=== PATIENT | male | born 1965 | race Two or more races ===

== ENCOUNTER 2023-11-16 17:02 | Emergency (ER) | payer MEDICAID ==
[~2023-11-16] VITALS: Ht 162.6 cm; Wt 79.5 kg
[2023-11-16 19:56] VITALS: BP 134/72; PULSE 97; RESP 18; TEMP 97.6; O2SAT 96
[2023-11-16 21:02] LABS: Urine Bacteria NONE SEEN /hpf (None Seen); Urine Blood Negative /uL (Negative); Urine Clarity Clear (Clear); Urine Color Yellow (Yellow); Urine Mucus FEW (None Seen); Urine Protein, UAD Negative (Negative); Urine Specific Gravity 1.018 (1.001-1.035); Urine Urobilinogen Normal (Negative); Urine WBC 4 /hpf (0 - 3)
[2023-11-19 08:06] LABS: Chlamydia Trachomatis, NAA Negative (Negative); Neisseria gonorrhoeae, NAA Negative (Negative)
== END 2023-11-16 22:21 | disposition home or self-care (01) ==
LOC: ER 17:02
DX: R30.0 Dysuria (principal); Z88.8 Allergy status to other drugs, medicaments and biological substances
CPT/HCPCS: 74176; 81001

== ENCOUNTER 2024-06-01 15:14 | Inpatient (IN) | payer MEDICAID ==
[~2024-06-01] VITALS: Ht 162.6 cm; Wt 99.4 kg
[2024-06-01 16:01] LABS: Basophils # (auto) 0 10 ^3/uL (0-0.2); Basophils % (auto) 0.4 % (0.0-2.0); Eosinophils # (auto) 0.2 10 ^3/uL (0-0.8); Eosinophils % (auto) 3.6 % (0.0-7.0); Hematocrit 37.4 % (41.0-53.0); Hemoglobin 12.5 g/dL (13.5-17.5); Lymphocytes # (auto) 1.2 10 ^3/uL (0.4-5.4); Lymphocytes % (auto) 25.9 % (10.0-50.0); Mean Corpuscular Hemoglobin 28.4 pg (28.0-32.0); Mean Corpuscular Hgb Conc. 33.4 g/dL (32.0-36.0); Monocytes # (auto) 0.4 10 ^3/uL (0-1.3); Monocytes % (auto) 8.5 % (0.0-12.0); Neutrophils # (auto) 2.9 10 ^3/uL (1.6-8.6); Neutrophils % (auto) 61.6 % (37.0-80.0); Nucleated Red Blood Cells % 0.1 %; Red Cell Distribution Width 14.9 % (11.8-14.3); White Blood Cell 4.7 10^3/uL (4.4-10.8)
[2024-06-01 16:18] LABS: Alanine Aminotransferase 27 U/L (7-40); Albumin 4.6 g/dL (3.2-4.8); Alkaline Phosphatase 139 U/L (46-116); Anion Gap 8 (5-15); Aspartate Aminotransferase 21 U/L (13-40); BUN/Creatinine Ratio 22.2 (10.0-20.0); Blood Urea Nitrogen 28 mg/dL (9-23); Calcium 9.6 mg/dL (8.7-10.4); Carbon Dioxide 22 mmol/L (20-30); Chloride 111 mmol/L (98-107); Glucose 88 mg/dL (74-106); Potassium 4.7 mmol/L (3.5-5.1); Sodium 141 mmol/L (136-145)
[2024-06-01 16:19] LABS: Bilirubin, Total 0.5 mg/dL (0.2-1.0); Total Protein 7.5 g/dL (5.7-8.2)
[2024-06-01] MEDS: HYDROmorphone HCL 2 MG/ML VL/or syr IM ONE (16:39)
[2024-06-01] MEDS: cloNIDine HCL 0.1 MG TAB PO ONE (16:39)
[2024-06-01 20:50] LABS: Urine Bacteria None Seen /hpf (None Seen)
[2024-06-01 21:04] LABS: Urine Blood Negative /uL (Negative); Urine Clarity Clear (Clear); Urine Color Light-Yellow (Yellow); Urine Protein, UAD Negative (Negative); Urine Specific Gravity 1.018 (1.001-1.035); Urine Urobilinogen Normal (Negative); Urine WBC 3 /hpf (0 - 3); Urine pH 5.5 (5.0-9.0)
[2024-06-01] MEDS ORDERED: hydrALAZINE HCL 20 MG/ML VL IV PRN (21:15)
[2024-06-01] MEDS ORDERED: ACETAMINOPHEN 325 MG TAB PO PRN (21:15)
[2024-06-01] MEDS ORDERED: ONDANSETRON HCL 4 MG/2 ML VIAL IV PRN (21:15)
[2024-06-01] MEDS ORDERED: DOCUSATE SOD 100 MG CAP PO PRN (21:15)
[2024-06-01] MEDS: METOPROLOL TARTRATE 50 MG TAB PO SCH (22:26)
[2024-06-01] MEDS: ATORVASTATIN 20 MG TAB PO SCH (22:26)
[2024-06-01] MEDS: SODIUM CHLOR 0.9% PF (SALINE LOCK) 10ML VIAL/SYR IV SCH (22:29)
[2024-06-01] MEDS: HYDROmorphone HCL 2 MG/ML VL/or syr IV ONE (23:32)
[2024-06-01] MEDS ORDERED: MORPHINE SULFATE INJ 2 MG/ml SYRG IV PRN (23:45)
[2024-06-01] MEDS ORDERED: NITROGLYCERIN 0.4 MG SL TAB SL PRN (23:45)
[2024-06-02] VITALS (8 sets, daily range): BP systolic 137–178; BP diastolic 57–76; PULSE 64–86; RESP 16–20; TEMP 97.4–98.2; O2SAT 95–99
[2024-06-02] MEDS ORDERED: LEVO125T7 PO (02:09)
[2024-06-02] MEDS ORDERED: GAB100C PO (02:09)
[2024-06-02] MEDS ORDERED: MET50T PO (02:09)
[2024-06-02] MEDS ORDERED: ATOR20TA50 PO (02:09)
[2024-06-02] MEDS ORDERED: GABA-1250 PO (02:09)
[2024-06-02] MEDS ORDERED: TAMS0.4C36 PO (02:09)
[2024-06-02] MEDS ORDERED: NAP500T PO (02:09)
[2024-06-02] MEDS: LEVOTHYROXINE SODIUM 50 MCG TAB PO SCH (05:58)
[2024-06-02 06:41] LABS: Basophils # (auto) 0 10 ^3/uL (0-0.2); Basophils % (auto) 0.4 % (0.0-2.0); Eosinophils # (auto) 0.2 10 ^3/uL (0-0.8); Eosinophils % (auto) 3.6 % (0.0-7.0); Hematocrit 34.6 % (41.0-53.0); Hemoglobin 11.4 g/dL (13.5-17.5); Lymphocytes # (auto) 1.5 10 ^3/uL (0.4-5.4); Lymphocytes % (auto) 30.8 % (10.0-50.0); Mean Corpuscular Hemoglobin 28.5 pg (28.0-32.0); Mean Corpuscular Volume 86.3 fL (80.0-100.0); Monocytes # (auto) 0.5 10 ^3/uL (0-1.3); Neutrophils # (auto) 2.7 10 ^3/uL (1.6-8.6); Neutrophils % (auto) 54.2 % (37.0-80.0); Nucleated Red Blood Cells % 0.1 %; Red Blood Cells 4.01 10^6/uL (4.5-5.90); Red Cell Distribution Width 14.8 % (11.8-14.3); White Blood Cell 4.9 10^3/uL (4.4-10.8)
[2024-06-02 06:45] LABS: Alanine Aminotransferase 20 U/L (7-40); Alkaline Phosphatase 123 U/L (46-116); Anion Gap 8 (5-15); BUN/Creatinine Ratio 17.1 (10.0-20.0); Blood Urea Nitrogen 22 mg/dL (9-23); Calcium 9.4 mg/dL (8.5-10.1); Carbon Dioxide 21 mmol/L (20-30); Chloride 111 mmol/L (98-107); Glucose 99 mg/dL (74-106); Potassium 4.2 mmol/L (3.5-5.1); Sodium 140 mmol/L (136-145)
[2024-06-02 06:46] LABS: Albumin 4.2 g/dL (3.2-4.8); Aspartate Aminotransferase 20 U/L (13-40)
[2024-06-02 06:47] LABS: Bilirubin, Total 0.4 mg/dL (0.2-1.0); Total Protein 6.8 g/dL (5.7-8.2)
[2024-06-02] MEDS: ASPirin 81 mg TAB PO SCH (11:01)
[2024-06-02] MEDS: HYDROmorphone HCL 2 MG/ML VL/or syr IV PRN (11:18)
[2024-06-02] MEDS: CLINDAMYCIN 600MG IV 50 ML IV SCH (21:12)
[2024-06-03 01:00] VITALS: BP 136/40; PULSE 68; RESP 18; TEMP 98; O2SAT 97
[2024-06-03 05:00] VITALS: BP 133/71; PULSE 63; RESP 18; TEMP 98; O2SAT 96
[2024-06-03 09:00] VITALS: BP 102/61; PULSE 60; RESP 18; TEMP 98; O2SAT 97
[2024-06-03 13:00] VITALS: BP 142/72; PULSE 64; RESP 20; TEMP 97.7; O2SAT 98
[2024-06-03 17:00] VITALS: BP 133/71; PULSE 90; RESP 18; TEMP 98.1; O2SAT 96
[2024-06-03] MEDS: TAMSULOSIN HYDROCHLORIDE 0.4 MG CAP PO SCH (18:05)
[2024-06-03] MEDS: Juven Orange Powder PACKET 27.5gm PO SCH (18:05)
[2024-06-03 20:00] VITALS: RESP 16
[2024-06-04 05:00] VITALS: BP 120/88; PULSE 99; RESP 18; TEMP 98.4; O2SAT 96
[2024-06-04 08:52] VITALS: BP 105/72; PULSE 100; PULSE 65; RESP 17; RESP 20; TEMP 98.1; O2SAT 98
[2024-06-04] MEDS ORDERED: CLIN1CAP70 PO (11:14)
[2024-06-04 13:00] VITALS: BP 139/75; PULSE 65; RESP 17; TEMP 98.1; O2SAT 97
== END 2024-06-04 16:20 | disposition home or self-care (01) | DRG 383 ==
LOC: ER 15:14 → WEST WING 23:40 → OVERFLOW 23:41 → WEST WING 06-02 01:01
PROVIDERS: ADMIT Internal Medicine; ATTEND Internal Medicine
DX: L03.115 Cellulitis of right lower limb (principal); D50.9 Iron deficiency anemia, unspecified; E86.0 Dehydration; E03.9 Hypothyroidism, unspecified; I16.0 Hypertensive urgency; M21.961 Unspecified acquired deformity of right lower leg; E78.5 Hyperlipidemia, unspecified; G62.9 Polyneuropathy, unspecified; N40.0 Benign prostatic hyperplasia without lower urinary tract symptoms; M19.071 Primary osteoarthritis, right ankle and foot; I12.9 Hypertensive chronic kidney disease with stage 1 through stage 4 chronic kidney disease, or unspecified chronic kidney disease; N18.9 Chronic kidney disease, unspecified; E66.9 Obesity, unspecified; Z88.3 Allergy status to other anti-infective agents; Z88.1 Allergy status to other antibiotic agents; Z68.37 Body mass index [BMI] 37.0-37.9, adult
CPT/HCPCS: 36415; 73600; 73620; 73700; 80053; 81001; 83605; 83690; 83880; 84443; 85025; 87077; 87186; 87205; 93925; 97163; G0378; J3490

== ENCOUNTER 2024-08-27 16:28 | Emergency (ER) | payer MEDICAID ==
[~2024-08-27] VITALS: Ht 162.6 cm; Wt 86.0 kg
[~2024-08-27 16:28] MED LIST: ATOR20TA50 PO; CLIN1CAP70 PO; GAB100C PO; GABA-1250 PO; LEVO125T7 PO; MET50T PO; NAP500T PO; TAMS0.4C39 PO
[2024-08-27 18:52] LABS: Basophils # (auto) 0 10 ^3/uL (0-0.2); Basophils % (auto) 0.2 % (0.0-2.0); Eosinophils # (auto) 0 10 ^3/uL (0-0.8); Eosinophils % (auto) 0.5 % (0.0-7.0); Hematocrit 40.2 % (41.0-53.0); Hemoglobin 13.6 g/dL (13.5-17.5); Lymphocytes # (auto) 0.5 10 ^3/uL (0.4-5.4); Lymphocytes % (auto) 12.6 % (10.0-50.0); Mean Corpuscular Hemoglobin 28.3 pg (28.0-32.0); Mean Corpuscular Hgb Conc. 33.7 g/dL (32.0-36.0); Mean Corpuscular Volume 83.9 fL (80.0-100.0); Monocytes # (auto) 0.4 10 ^3/uL (0-1.3); Monocytes % (auto) 9.3 % (0.0-12.0); Neutrophils # (auto) 3.2 10 ^3/uL (1.6-8.6); Neutrophils % (auto) 77.4 % (37.0-80.0); Nucleated Red Blood Cells % 0.3 %; Platelet Count (auto) 174 10^3/uL (140-450); White Blood Cell 4.2 10^3/uL (4.4-10.8)
[2024-08-27 19:08] LABS: Alanine Aminotransferase 21 U/L (7-40); Alkaline Phosphatase 128 U/L (46-116); Anion Gap 11 (5-15); Aspartate Aminotransferase 23 U/L (13-40); BUN/Creatinine Ratio 13.9 (10.0-20.0); Blood Urea Nitrogen 25 mg/dL (9-23); Calcium 9.9 mg/dL (8.7-10.4); Carbon Dioxide 22 mmol/L (20-31); Chloride 107 mmol/L (98-107); Glucose 112 mg/dL (74-106); Potassium 4.1 mmol/L (3.5-5.1); Sodium 140 mmol/L (136-145); Total Protein 8.5 g/dL (5.7-8.2)
[2024-08-27 20:42] LABS: Urine Bacteria MANY /hpf (None Seen); Urine Blood 1+ /uL (Negative); Urine Clarity Ex.Turbid (Clear); Urine Color Yellow (Yellow); Urine Mucus FEW (None Seen); Urine Protein, UAD 1+ (Negative); Urine Specific Gravity 1.023 (1.001-1.035); Urine Urobilinogen 2 mg/dL (Negative); Urine WBC 543 /hpf (0 - 3); Urine pH 5.5 (5.0-9.0)
[2024-08-27] MEDS ORDERED: NITR-87 PO (20:52)
[2024-08-27 21:15] VITALS: BP 159/61; PULSE 99; RESP 16; O2SAT 97
[2024-08-27] MEDS: ACETAMINOPHEN 500 MG TAB PO ONE (21:20)
[2024-08-29 23:06] LABS: Chlamydia Trachomatis, NAA Negative (Negative); Neisseria gonorrhoeae, NAA Negative (Negative)
== END 2024-08-27 21:28 | disposition home or self-care (01) ==
LOC: ER 16:28
DX: N39.0 Urinary tract infection, site not specified (principal); I10 Essential (primary) hypertension; Z88.1 Allergy status to other antibiotic agents; Z88.2 Allergy status to sulfonamides; Z88.8 Allergy status to other drugs, medicaments and biological substances; Z79.899 Other long term (current) drug therapy
CPT/HCPCS: 36415; 80053; 81001; 85025

== ENCOUNTER 2024-09-08 11:19 | Emergency (ER) | payer MEDICAID ==
[~2024-09-08] VITALS: Ht 162.6 cm; Wt 99.5 kg
[~2024-09-08 11:19] MED LIST changes: +NITR-87 PO
[2024-09-08 11:57] LABS: Basophils # (auto) 0 10 ^3/uL (0-0.2); Basophils % (auto) 0.5 % (0.0-2.0); Eosinophils # (auto) 0.1 10 ^3/uL (0-0.8); Eosinophils % (auto) 3.5 % (0.0-7.0); Hematocrit 38.3 % (41.0-53.0); Hemoglobin 12.6 g/dL (13.5-17.5); Lymphocytes # (auto) 1.1 10 ^3/uL (0.4-5.4); Lymphocytes % (auto) 29.6 % (10.0-50.0); Mean Corpuscular Hemoglobin 27.7 pg (28.0-32.0); Mean Corpuscular Hgb Conc. 32.9 g/dL (32.0-36.0); Mean Corpuscular Volume 84.4 fL (80.0-100.0); Monocytes # (auto) 0.3 10 ^3/uL (0-1.3); Monocytes % (auto) 7.6 % (0.0-12.0); Neutrophils # (auto) 2.2 10 ^3/uL (1.6-8.6); Neutrophils % (auto) 58.8 % (37.0-80.0); Nucleated Red Blood Cells % 0.1 %; Platelet Count (auto) 179 10^3/uL (140-450); Red Blood Cells 4.54 10^6/uL (4.5-5.90); Red Cell Distribution Width 15.8 % (11.8-14.3); White Blood Cell 3.7 10^3/uL (4.4-10.8)
[2024-09-08 12:05] LABS: Chloride 112 mmol/L (98-107); Potassium 4.2 mmol/L (3.5-5.1); Sodium 143 mmol/L (136-145)
[2024-09-08 12:06] LABS: Anion Gap 10 (5-15); Carbon Dioxide 21 mmol/L (20-31)
[2024-09-08 12:07] LABS: Calcium 9.2 mg/dL (8.7-10.4)
[2024-09-08 12:11] LABS: BUN/Creatinine Ratio 14.3 (10.0-20.0); Blood Urea Nitrogen 20 mg/dL (9-23); Glucose 100 mg/dL (74-106)
[2024-09-08 12:22] LABS: Urine Bacteria None Seen /hpf (None Seen)
[2024-09-08 12:39] LABS: Urine Blood 3+ /uL (Negative); Urine Clarity Turbid (Clear); Urine Color Colorless (Yellow); Urine Mucus FEW (None Seen); Urine Protein, UAD 1+ (Negative); Urine Specific Gravity 1.018 (1.001-1.035); Urine Urobilinogen Normal (Negative); Urine WBC 66 /hpf (0 - 3); Urine pH 5.5 (5.0-9.0)
[2024-09-08] MEDS: KETOROLAC TROMETH 30 MG/ML 1ML VIAL IV ONE (14:06)
[2024-09-08] MEDS: cefTRIAXone 1GM/50ML D5W 50 ML IV ONE (14:06)
[2024-09-08] MEDS: SODIUM CHLORIDE 0.9% 1,000 ML IV ONE (14:07)
[2024-09-08] MEDS ORDERED: CEFD300C2 PO (16:28)
[2024-09-08 16:38] VITALS: BP 131/80; PULSE 66; RESP 18; TEMP 98; O2SAT 99
== END 2024-09-08 16:47 | disposition home or self-care (01) ==
LOC: ER 11:19
DX: N39.0 Urinary tract infection, site not specified (principal); I10 Essential (primary) hypertension; Z79.899 Other long term (current) drug therapy; Z87.440 Personal history of urinary (tract) infections; Z98.890 Other specified postprocedural states; Z88.1 Allergy status to other antibiotic agents; Z88.2 Allergy status to sulfonamides; Z88.5 Allergy status to narcotic agent
CPT/HCPCS: 36415; 80048; 81001; 85025; 96365; 96375; 99284; J0696; J1885; J7030; 96361

== ENCOUNTER 2024-12-13 14:23 | Inpatient (IN) | payer MEDICARE, MEDICAID ==
[~2024-12-13] VITALS: Ht 162.6 cm; Wt 100.3 kg
[~2024-12-13 14:23] MED LIST changes: +CEFD300C2 PO
[2024-12-13 15:45] VITALS: PULSE 100; RESP 18; O2SAT 97
--- NOTE | 2024-12-13 16:12 | DVH ---
CT ABDOMEN AND PELVIS WITHOUT CONTRAST CLINICAL HISTORY: Diffuse bilateral upper abdominal pain TECHNIQUE: Multiple contiguous axial images of the abdomen and pelvis without intravenous contrast. The images were reformatted degenerate coronal and sagittal reconstructions. All CT scans at this medical facility are performed using dose modulation techniques as appropriate t o a performed exam including the following:Automated exposure control was utilized; adjustment of the MA and/or KV according to patient size; and use of iterative reconstruction technique. Radiation Dose Information: CT Dose: CTDI volume is 24 mGy. Dose-length product is 1201 mGy*cm Comparison: CT CT AB PEL WO CON-NO ORAL OR IV on DOS: 11/16/23 FINDINGS: Evaluation of the abdomen and pelvis is limited without intravenous contrast. The liver again appears small in size with nodular surface contour compatible with hepatic cirrhosis. There is no suspicious appearing hepatic steatosis. The gallbladder, pancreas, kidneys, adrenal g lands, and spleen appear within normal limits. There is no gross evidence of abdominal lymphadenopathy. There is no free fluid or free air. The stomach grossly appears unremarkable. The small and large bowel loops demonstrate normal caliber . There is a normal-appearing appendix seen in the right lower quadrant abdomen without inflammatory changes. The abdominal aorta and IVC appear within normal limits. A poorly filled bladder demonstrates circumferential wall thickening. Pelvic organ appears within nor mal limits. There is no gross evidence of a pelvic mass. There is no free fluid collection. Lung bases are clear. There is stable deformities of the T11 and T12 vertebral bodies with loss of intervertebral disc spac e.. There are multilevel degenerative changes in lumbar spine. IMPRESSION: 1. There is no acute process in the abdomen and pelvis. 2. The liver demonstrates cirrhotic morphology. 3. Stable deformities of the T11 and T12 vertebral bodies with loss of intervertebral disc space. HS:Y
[2024-12-13] MEDS: DICYCLOMINE HCL (10MG/ML) 2 ML AMPULE IM ONE (16:19)
[2024-12-13 16:45] LABS: Basophils # (auto) 0 10 ^3/uL (0-0.2); Basophils % (auto) 0.4 % (0.0-2.0); Eosinophils # (auto) 0 10 ^3/uL (0-0.8); Eosinophils % (auto) 1.4 % (0.0-7.0); Hematocrit 43.1 % (41.0-53.0); Hemoglobin 14.2 g/dL (13.5-17.5); Lymphocytes # (auto) 0.9 10 ^3/uL (0.4-5.4); Lymphocytes % (auto) 31.2 % (10.0-50.0); Mean Corpuscular Hemoglobin 28.4 pg (28.0-32.0); Mean Corpuscular Volume 86.1 fL (80.0-100.0); Monocytes # (auto) 0.5 10 ^3/uL (0-1.3); Monocytes % (auto) 17.1 % (0.0-12.0); Neutrophils # (auto) 1.4 10 ^3/uL (1.6-8.6); Neutrophils % (auto) 49.9 % (37.0-80.0); Nucleated Red Blood Cells % 0.3 %; Platelet Count (auto) 141 10^3/uL (140-450); Red Blood Cells 5.01 10^6/uL (4.5-5.90); Red Cell Distribution Width 16.3 % (11.8-14.3); White Blood Cell 2.8 10^3/uL (4.4-10.8)
[2024-12-13 16:51] LABS: Potassium 4.5 mmol/L (3.5-5.1); Sodium 141 mmol/L (136-145)
[2024-12-13 16:52] LABS: Anion Gap 11 (5-15); Carbon Dioxide 23 mmol/L (20-31)
[2024-12-13 16:53] LABS: Calcium 9.8 mg/dL (8.7-10.4)
[2024-12-13 16:57] LABS: Glucose 94 mg/dL (74-106)
[2024-12-13 17:05] LABS: Blood Urea Nitrogen 32 mg/dL (9-23); Chloride 107 mmol/L (98-107); Lipase 55 U/L (12-53)
[2024-12-13 18:18] LABS: Urine Bacteria MANY /hpf (None Seen); Urine Blood TRACE /uL (Negative); Urine Clarity Turbid (Clear); Urine Color Yellow (Yellow); Urine Mucus FEW (None Seen); Urine Protein, UAD TRACE (Negative); Urine Specific Gravity 1.024 (1.001-1.035); Urine Squamous Epithelial Cell FEW /hpf (<5); Urine Urobilinogen 2 mg/dL (Negative); Urine WBC 125 /hpf (0 - 3); Urine pH 5.5 (5.0-9.0)
--- NOTE | 2024-12-13 19:43 | ED.PDOC ---
General HPI Comments This patient is a morbidly obese 59-year-old male who arrives the ED today for evaluation more on in his urine as well as upper abdominal pain for the past two days. Patient has recently had multiple UTIs patient states he believes he is having an urinary tract infection again and is concerned about his abdominal pain. Patient denies any fever or vomiting but states intermittent nausea. Patient was mildly hypertensive and mildly tachycardic at arrival. Chief Complaint: Urinary Time Seen by MD: 15:37 Primary Care Provider: BRYANT Reviewed notes: Nurses Notes Allergies: Coded Allergies: Ciprofloxacin (Verified Allergy, Unknown, 11/16/23) PATIENT STATES MAKES HIM ITCHY Morphine (Verified Allergy, Unknown, 11/16/23) Sulfamethoxazole w/Trimethoprim (Verified Allergy, Unknown, 11/16/23) Home Meds Active Scripts Cefdinir (Cefdinir) 300 Mg Cap, 1 CAP PO BID for 7 Days, #14 CAP Prov:DONALDO CROWELL MD 09/08/24 Nitrofurantoin Monohydrate Mac (Macrobid) 100 Mg Cap, 100 MG PO BID for 7 Days, #14 CAP Prov:SIDRA VÁZQUEZ 08/27/24 Clindamycin Hcl (Clindamycin Hcl) 300 Mg Cap, 300 MG PO TID for 7 Days, #21 CAP Prov:MARY KAY BANKS MD 06/04/24 Reported Medications Gabapentin (Gabapentin) 100 Mg Cap, 1 CAP PO TID 06/02/24 Atorvastatin Calcium (ATORVASTATIN CALCIUM) 20 Mg Tab, 1 TAB PO DAILY 06/02/24 Naproxen (NAPROSYN TABLET) 500 Mg Tb, 1 TAB PO BID 06/02/24 Levothyroxine Sodium (Levothyroxine Sodium) 125 Mcg Tab, 1 TAB PO DAILY 06/02/24 Gabapentin (Gabapentin) 300 Mg Cap, 1 CAP PO TID 06/02/24 Tamsulosin Hcl (Tamsulosin Hcl) 0.4 Mg Cap, 1 CAP PO DAILY 06/02/24 Metoprolol Tartrate (LOPRESSOR TABLET) 50 Mg Tb, 1 TAB PO BID 06/02/24 Information Source: Patient Mode of Arrival: Ambulatory Severity: Moderate Timing: Days Duration: Since onset Prehospital treatment: None Onset: Spontaneous Symptoms: Dysuria History of: UTI Location: Suprapubic, Abdomen associated signs and symptoms: Abdominal Pain, Nausea Past Medical History PAST MEDICAL HISTORY: HTN Surgical History: Denies all surgeries Family History Family History: Reviewed,noncontributory to illness, No family hx of Cancer, No family hx of DM, No family hx of Heart amilcar, No family hx of HTN, No family hx ofKidney amilcar, No family hx of Liver amilcar, No family hx of Lung amilcar, No family hx of Stroke Social History Smoker: Non-Smoker Alcohol: Denies ETOH Use Drugs: Denies Drug Use Lives In: Home Constitutional: denies: chills, diaphoresis, fatigue, fever, malaise, sweats, weakness, others EENTM: denies: blurred vision, double vision, ear bleeding, ear discharge, ear drainage, ear pain, ear ringing, eye pain, eye redness, hearing loss, mouth pain, mouth swelling, nasal discharge, nose bleeding, nose congestion, nose pain, photophobia, tearing, throat pain, throat swelling, voice changes, others Respiratory: denies: cough, hemoptysis, orthopnea, SOB at rest, shortness of breath, SOB with excertion, stridor, wheezing, others Cardiovascular: denies: chest pain, dizzy spells, diaphoresis, Dyspnea on exertion, edema, irregular heart beat, left arm pain, lightheadedness, palpitations, PND, syncope, others Gastrointestinal: reports: abdominal pain; denies: abdomen distended, blood streaked bowels, constipated, diarrhea, dysphagia, difficulty swallowing, hematemesis, melena, nausea, poor appetite, poor fluid intake, rectal bleeding, rectal pain, vomiting, others Genitourinary: reports: dysuria, hematuria; denies: burning, flank pain, frequency, incontinence, penile discharge, penile sore, pain, testicle pain, testicle swelling, urgency, others Neurological: denies: dizziness, fainting, headache, left sided numbness, left sided weakness, numbness, paresthesia, pre-existing deficit, right sided numbness, right sided weakness, seizure, speech problems, tingling, tremors, weakness, others Musculoskeletal: reports: back pain; denies: gout, joint pain, joint swelling, muscle pain, muscle stiffness, neck pain, others Integumetry: denies: bruises, change in color, change in hair/nails, dryness, laceration, lesions, lumps, rash, wounds, others Allergic/Immunocompromised: denies: Difficulty Healing, Frequent Infections, Hives, Itching, others Hematologic/Lymphatic: denies: anemia, blood clots, easy bleeding, easy bruising, swollen glands, others Endocrine: denies: excessive hunger, excessive sweating, excessive thirst, excessive urination, flushing, intolerance to cold, intolerance to heat, unexplained weight gain, unexplained weight loss, others Psychiatric: denies: anxiety, bipolar disorder, depression, hopeless, panic disorder, schizophrenia, sleepless, suicidal, others Physical Exam General Appearance: Moderate Distress ([id number] distress due to abdominal pain and urinary concerns.), Obese HEENT: Normal ENT Inspection, Pharynx Normal, TMs Normal Neck: Full Range of Motion, Non-Tender, Normal, Normal Inspection Respiratory: Chest Non-Tender, Lungs Clear, No Accessory Muscle Use, No Respiratory Distress, Normal Breath Sounds Cardiovascular: No Edema, No JVD, No Murmur, No Gallop, Normal Peripheral Pulses, Regular Rate/Rhythm Breast Exam: Deferred Gastrointestinal: Other (Diffuse epigastric tenderness to palpation bilaterally on a relatively firm stomach. No pulsatile masses, but difficult to assess due to the body habitus of the individual.) Genitalia: Deferred Pelvic: Deferred Rectal: Deferred Extremities: No calf tenderness, Normal capillary refill, Normal inspection, Normal range of motion, Non-tender, No pedal edema Neurologic: Alert, No Motor Deficits, Normal Affect, Normal Mood, No Sensory Deficits Cerebellar Function: Normal Reflexes: Normal Skin: Dry, Normal Color, Warm Lymphatic: No Adenopathy Was a procedure done? Was a procedure done?: No Differential Diagnosis Kidney stone (Female): N/A Urinary Problem (Male): Other (UTI, pyelonephritis, urosepsis, sepsis, electrolyte abnormality, pancreatitis, gastroenteritis, liver disease) X-Ray, Labs, Meds, VS Vital Signs Date Time Temp Pulse Resp B/P (MAP) Pulse Ox O2 Delivery O2 Flow Rate FiO2 12/13/24 17:56 97.8 103 18 159/82 (107) 98 97.8 12/13/24 16:24 98.8 82 16 135/68 (90) 100 98.8 12/13/24 16:24 82 16 100 Room Air 12/13/24 15:45 100 18 97 Room Air* 0 21 12/13/24 15:40 98.5 100 18 151/85 (107) 97 98.5 12/13/24 14:52 98.0 104 20 144/81 (102) 96 Lab Test 12/13/24 17:49 12/13/24 16:14 12/13/24 15:34 Range/Units Troponin I High Sensitivity 6 5 </=54 ng/L White Blood Count 2.8 L 4.4-10.8 10^3/uL Red Blood Count 5.01 4.5-5.90 10^6/uL Hemoglobin 14.2 13.5-17.5 g/dL Hematocrit 43.1 41.0-53.0 % Mean Corpuscular Volume 86.1 80.0-100.0 fL Mean Corpuscular Hemoglobin 28.4 28.0-32.0 pg Mean Corpuscular Hemoglobin Concent 33.0 32.0-36.0 g/dL Red Cell Distribution Width 16.3 H 11.8-14.3 % Platelet Count 141 140-450 10^3/uL Mean Platelet Volume 7.7 6.9-10.8 fL Neutrophils (%) (Auto) 49.9 37.0-80.0 % Lymphocytes (%) (Auto) 31.2 10.0-50.0 % Monocytes (%) (Auto) 17.1 H 0.0-12.0 % Eosinophils (%) (Auto) 1.4 0.0-7.0 % Basophils (%) (Auto) 0.4 0.0-2.0 % Neutrophils # (Auto) 1.4 L 1.6-8.6 10 ^3/uL Lymphocytes # (Auto) 0.9 0.4-5.4 10 ^3/uL Monocytes # (Auto) 0.5 0-1.3 10 ^3/uL Eosinophils # (Auto) 0 0-0.8 10 ^3/uL Basophils # (Auto) 0 0-0.2 10 ^3/uL Nucleated Red Blood Cells 0.3 % Sodium Level 141 136-145 mmol/L Potassium Level 4.5 3.5-5.1 mmol/L Chloride Level 107 98-107 mmol/L Carbon Dioxide Level 23 20-31 mmol/L Anion Gap 11 5-15 Blood Urea Nitrogen 32 H 9-23 mg/dL Creatinine 1.78 H 0.700-1.30 mg/dL Glomerular Filtration Rate Calc 43 >90 mL/min BUN/Creatinine Ratio 18.0 10.0-20.0 Serum Glucose 94 74-106 mg/dL Calcium Level 9.8 8.7-10.4 mg/dL B-Type Natriuretic Peptide 6.19 0-100 pg/mL Lipase 55 H 12-53 U/L Urine Color Yellow Yellow Urine Clarity Turbid H Clear Urine pH 5.5 5.0-9.0 Urine Specific [place] 1.024 1.001-1.035 Urine Protein Trace H Negative Urine Ketones Negative Negative Urine Blood Trace H Negative /uL Urine Nitrite Negative Negative Urine Bilirubin Negative Negative Urine Urobilinogen 2 H Negative mg/dL Urine Leukocyte Esterase 3+ Negative /uL Urine RBC 7 0 - 3 /hpf Urine WBC 125 0 - 3 /hpf Urine Squamous Epithelial Cells Few <5 /hpf Urine Bacteria Many H None Seen /hpf Urine Mucus Few None Seen Urine Glucose Normal Normal mg/dL Current Medications Medications (Trade) Dose Ordered Sig/Noe Route Start Time Stop Time Status Last Admin Dicyclomine HCl (Bentyl Injection) 20 mg ONCE ONCE IM 12/13/24 15:45 12/13/24 15:47 DC 12/13/24 16:19 X-Ray, Labs, Meds, VS Comment All studies performed in the ED were evaluated by me personally. Laboratories studies revealed a leukopenia, elevated lipase, what appears to be acute on chronic renal injury and a significant urinary tract infection. Imaging studies ruled out a definitive pancreatitis, but it appears the patient has liver cirrhosis. Due to the intractable nature of the patient's urinary tract infections as he has failed on oral outpatient medications multiple times, patient will be admitted for IV antibiotics as well as assistance related to his liver cirrhosis concerns. Time of 1ST Reevaluation: 19:41 Reevaluation 1ST: Improved Consultation: PCP, Other (Hepatology) Patient Education/Counseling: Diagnosis, Treatment Family Education/Counseling: Diagnosis, Treatment Departure 1 Departure Time of Disposition: 19:42 Impression: Primary Impression: Pyelonephritis Additional Impressions: Liver cirrhosis [id number] kidney injury Elevated lipase Leukopenia Disposition: ADMITTED INPATIENT Condition: Stable Discharged With: Self Critical Care Note Critical Care Time?: No Stability Stability form required: No Heart Score Heart Score: Heart Score Response (Comments) Value History Slightly Suspicious 0 EKG Repolarization Disturb 1 Age 45-64 1 Risk Factors 1 or 2 risk factors 1 Troponin Normal limit 0 Total 3 TRINA HAM PAC Dec 13, 2024 19:43
[2024-12-13] MEDS: cefTRIAXone 1GM/50ML D5W 50 ML IV ONE (21:14)
[2024-12-13 23:00] VITALS: BP 126/75; PULSE 70; RESP 18; TEMP 98.9; O2SAT 97
[2024-12-13] MEDS ORDERED: NITROGLYCERIN 0.4 MG SL TAB SL PRN (23:00)
[2024-12-13] MEDS: TAMSULOSIN HYDROCHLORIDE 0.4 MG CAP PO ONE (23:30)
--- NOTE | 2024-12-13 23:38 | DVHHPRES ---
History of Present Illness Resident Creating Document: GABBY EDWARDS RESDIENT History of Present Illness This is a 59-year-old male with past medical history of recurrent UTI (3 pCO2 of LUZ within last year), hypertension, hypothyroidism, hyperlipidemia, came to the hospital because of abdominal pain. Per patient, the patient had upper respiratory tract infection symptoms including nasal drip, sneezing, cough since 4 days and epigastric abdominal pain since 2 days which is reproducible with cough. Patient also complained of urgency and frequency. Patient denies fever, shortness of breaths, chest pain, nausea, vomiting, headache, and recent changes in bowel and bladder habits. PMHx: recurrent UTI (3 pCO2 of LUZ within last year), hypertension, hypothyroidism, hyperlipidemia PSHx: BPH, status post TURP Social history: Ex-smoker, ex amphetamine user, ex cocaine user, ex heroin user, lives with the family, use walker for mobility Home medication: Atorvastatin, gabapentin, levothyroxine, tamsulosin, metoprolol Allergic history: Ciprofloxacin, morphine, Bactrim Review of Systems Review of Systems General: patient denies fever, fatigue, weaknes, sweating, any recent changes in appetite and weight HEENT: No headaches, visiual changes, hearing loss, tinnitus, nasal congestion and discharge, and sore throat. Cardiovascular: Reports epigastric abdominal Respiratory: Reports cough Gastrointestinal: Denies nausea, vomiting, dysphagia, odynophagia, heartburn, abdominal pain, flatulence, bloating, diarrhea, constipation, change in stool, or blood in stool. Genitourinary: Reports urgency and frequency Endocrine: No heat or cold intolerance, polydipsia, polyuria, and polyphagia. Neurological: No dizziness, extremity weakness and numbness, tremors, gait disturbance, seizures, and memory impairment. Psychiatric: Denies depression, anxiety,or insomnia. Musculoskeletal: Denies neck pain, stiffness and swelling, back pain, muscle weakness, joint pain, stiffness, swelling, or limited range of motion. Skin: No rashes, itching, skin lesion, changes in hair, nail, skin texture and breast. Hematologic/Lymphatic: Denies easy bruising, bleeding tendencies, or lymph node enlargement. Allergies: Coded Allergies: Ciprofloxacin (Verified Allergy, Unknown, 11/16/23) PATIENT STATES MAKES HIM ITCHY Morphine (Verified Allergy, Unknown, 11/16/23) Sulfamethoxazole w/Trimethoprim (Verified Allergy, Unknown, 11/16/23) Medications Current Medications Medications Dose Ordered Sig/Noe Route Start Time Stop Time Status Last Admin Dose Admin Nitroglycerin 0.4 mg Q5MINP PRN SL 12/13/24 23:00 Acetaminophen/ Hydrocodone Bitart 1 tab Q4HPRN PRN PO 12/13/24 23:15 Enoxaparin Sodium 40 mg DAILY SC 12/14/24 10:00 UNV Levothyroxine Sodium 125 mcg QAM@0600 PO 12/14/24 06:00 UNV Sodium Chloride 1,000 ml @ 100 mls/hr Q10H IV 12/13/24 23:30 UNV Ceftriaxone Sodium 50 ml @ 100 mls/hr DAILY@09 IV 12/14/24 09:00 UNV Ipratropium [place] 0.5 mg Q6HR NEB 12/14/24 00:00 UNV Tamsulosin HCl 0.4 mg QPM PO 12/14/24 18:00 UNV Albuterol 2.5 mg Q6HR NEB 12/14/24 00:00 UNV Exam Vital Signs Vital Signs Date Time Temp Pulse Resp B/P (MAP) Pulse Ox O2 Delivery O2 Flow Rate FiO2 12/13/24 17:56 97.8 103 18 159/82 (107) 98 97.8 12/13/24 16:24 Room Air 12/13/24 15:45 0 21 Exam General Appearance: Alert, Oriented X3, Cooperative, No acute distress HEENT: Atraumatic, PERRLA, EOMI, Mucous membrane moist/pink Respiratory: Bilateral mild rhonchi Cardiovascular: Regular rate, Normal S1, Normal S2, No murmurs, no chest wall tenderness Abdominal: Normal bowel sounds, Soft, No tenderness, No hepatospenomegaly, No masses Extremities: No clubbing, No cyanosis, No edema, Normal pulses, No tende rness/swelling Skin: Bilateral lower limb erythematous patches at the level of downey to the ankle Neuro: Normal gait, Normal speech, Strength at 5/5 X4 ext, Normal tone, Sensation intact, Cranial nerves 3-12 NL, Reflexes 2+ Psych/Mental Status: Mental status NL, Mood NL Labs/Xrays Labs Test 12/13/24 17:49 12/13/24 16:14 1/17/25 15:34 Range/Units Troponin I High Sensitivity 6 </=54 ng/L White Blood Count 2.8 L 4.4-10.8 10^3/uL Red Blood Count 5.01 4.5-5.90 10^6/uL Hemoglobin 14.2 13.5-17.5 g/dL Hematocrit 43.1 41.0-53.0 % Mean Corpuscular Volume 86.1 80.0-100.0 fL Mean Corpuscular Hemoglobin 28.4 28.0-32.0 pg Mean Corpuscular Hemoglobin Concent 33.0 32.0-36.0 g/dL Red Cell Distribution Width 16.3 H 11.8-14.3 % Platelet Count 141 140-450 10^3/uL Mean Platelet Volume 7.7 6.9-10.8 fL Neutrophils (%) (Auto) 49.9 37.0-80.0 % Lymphocytes (%) (Auto) 31.2 10.0-50.0 % Monocytes (%) (Auto) 17.1 H 0.0-12.0 % Eosinophils (%) (Auto) 1.4 0.0-7.0 % Basophils (%) (Auto) 0.4 0.0-2.0 % Neutrophils # (Auto) 1.4 L 1.6-8.6 10 ^3/uL Lymphocytes # (Auto) 0.9 0.4-5.4 10 ^3/uL Monocytes # (Auto) 0.5 0-1.3 10 ^3/uL Eosinophils # (Auto) 0 0-0.8 10 ^3/uL Basophils # (Auto) 0 0-0.2 10 ^3/uL Nucleated Red Blood Cells 0.3 % Sodium Level 141 136-145 mmol/L Potassium Level 4.5 3.5-5.1 mmol/L Chloride Level 107 98-107 mmol/L Carbon Dioxide Level 23 20-31 mmol/L Anion Gap 11 5-15 Blood Urea Nitrogen 32 H 9-23 mg/dL Creatinine 1.78 H 0.700-1.30 mg/dL Glomerular Filtration Rate Calc 43 >90 mL/min BUN/Creatinine Ratio 18.0 10.0-20.0 Serum Glucose 94 74-106 mg/dL Calcium Level 9.8 8.7-10.4 mg/dL B-Type Natriuretic Peptide 6.19 0-100 pg/mL Lipase 55 H 12-53 U/L Urine Color Yellow Yellow Urine Clarity Turbid H Clear Urine pH 5.5 5.0-9.0 Urine Specific [place] 1.024 1.001-1.035 Urine Protein Trace H Negative Urine Ketones Negative Negative Urine Blood Trace H Negative /uL Urine Nitrite Negative Negative Urine Bilirubin Negative Negative Urine Urobilinogen 2 H Negative mg/dL Urine Leukocyte Esterase 3+ Negative /uL Urine RBC 7 0 - 3 /hpf Urine WBC 125 0 - 3 /hpf Urine Squamous Epithelial Cells Few <5 /hpf Urine Bacteria Many H None Seen /hpf Urine Mucus Few None Seen Urine Glucose Normal Normal mg/dL Assessment/Plan Assessment/Plan Sepsis, likely due to UTI/pneumonia Pneumonia, likely due to Gram-positive Gram-negative/viral Chest x-ray shows interstitial infiltration Check COVID-19, influenza type a and B, MRSA nares and blood culture Empiric antibiotic ceftriaxone Breathing treatment IV normal saline Liver cirrhosis, likely due to alcohol use disorder Patient has history of alcohol use disorder, in sober since 3 years Hypothyroidism Continue home dose of levothyroxine Recurrent UTI UA shows UTI picture Urine culture Ceftriaxone Right foot deformity, patient use walker for mobility Follow up on outpatient basis with Orthopedics Hyperlipidemia Continue atorvastatin LUZ, on CKD 2, likely VMN FENa is 0.2 IV fluid BPH, status post TURP Continue tamsulosin Grade 2 obesity Patient consulted for healthy food habits for more than 18 minutes Hypertension Amlodipine 5 mg DIET: Cardiac diet DVT PROPHYLAXIS: Lovenox CODE STATUS: Goal of care discussed for more than 21 minutes, full code DISPOSITION: Med/surge Patient's status discussed with the patient. Case discussed with Dr. Mclaughlin Plan discussed with: Patient, Other (RN) My Orders Orders - GABBY EDWARDS RESDIMARGOTH Procedure Category Date Status Time Admit ADMIT 12/13/24 Transmitted 22:56 Oxygen By Nasal RT 12/13/24 Transmitted Cannula 22:56 Notify Of Changes SUE 12/13/24 In Process From Base 22:56 Nitroglycerin PHA 12/13/24 In Process Sublingual (Ntrostat 23:00 Hydrocodone-Acet PHA 12/13/24 In Process 5/325mg Tab ([place] 23:15 Enoxaparin Sodium PHA 12/13/24 Logged (Lovenox) 23:30 Enoxaparin Sodium PHA 12/14/24 Logged (Lovenox) 10:00 Levothyroxine Tablet PHA 12/14/24 Logged (Synthroid Tablet) 06:00 Sodium Chloride 0.9% PHA 12/13/24 Logged 23:30 Ceftriaxone 1gm/50ml PHA 12/14/24 Logged D5w (Rocephin) 09:00 Ipratropium Med[place] PHA 12/14/24 Logged (Atrovent Medneb) 00:00 Tamsulosin PHA 12/13/24 Logged Hydrochloride (Flomax) 23:30 Tamsulosin PHA 12/14/24 Logged Hydrochloride (Flomax) 18:00 Albuterol Medneb PHA 12/14/24 Transmitted (Ventolin Medneb) 00:00 Amlodipine Tablet PHA 12/13/24 Transmitted (Norvasc Tablet) 23:30 Amlodipine Tablet PHA 12/14/24 Transmitted (Norvasc Tablet) 10:00 Blood Culture SHARAN 12/13/24 Transmitted 23:29 Lipase LAB 12/13/24 Transmitted 23:29 Rapid Influenza A&B LAB 12/13/24 Transmitted 23:29 Covid19 Antigen [place] LAB 12/13/24 Transmitted Mrsa Screen SHARAN 12/13/24 Transmitted 23:29 Drug Screen LAB 12/13/24 Transmitted 23:29 Chest Xray 1 View XY 12/13/24 Logged 23:29 Cardiac DIET 12/14/24 Transmitted Diet-2gna,Lofat,Lochol Breakfast Urine Sodium LAB 12/13/24 Transmitted 23:29 Urine Creatinine LAB 12/13/24 Transmitted 23:29 Date of Service: Dec 13, 2024 Billing Provider: MARYLOU MCLAUGHLIN MD Common Visit Codes: [id number] INP/OBS CARE (HIGH) GABBY EDWARDS RESDIENT Dec 13, 2024 23:38 MARYLOU MCLAUGHLIN MD Dec 14, 2024 10:07
--- NOTE | 2024-12-13 23:56 | DVH ---
CHEST RADIOGRAPH Indication: COugh Technique: Single frontal view of the chest was obtained COMPARISON: None FINDINGS: Lines and Tubes: None Lungs: Mild interstitial pulmonary edema. Left basilar atelectasis. Pleura: No effusion. No pneumothorax. Cardiomediastinal contours: Unremarkable Bones: Unremarkable IMPRESSION: 1. Mild interstitial pulmonary edema.
[2024-12-14] VITALS (16 sets, daily range): BP systolic 115–144; BP diastolic 58–81; PULSE 71–106; RESP 16–20; TEMP 98.2–98.7; O2SAT 91–100
[2024-12-14 00:11] LABS: Sodium Urine 38 mmol/L (40-220)
[2024-12-14 00:18] LABS: Opiate Scree,Urine Neg (NEGATIVE); Phencyclidine Screen, Urine Neg (NEGATIVE)
[2024-12-14 00:39] LABS: Amphetamine Screen, Urine Neg (NEGATIVE); Barbiturate Scree,Urine Neg (NEGATIVE); Benzodiazephine Screen, Urine Neg (NEGATIVE); Cannabinoid Screen, Urine Neg (NEGATIVE); Cocaine Screen, Urine Neg (NEGATIVE); Creatinine, Urine 237.54 mg/dL (30.0-125.0)
[2024-12-14] MEDS: ALBUTEROL SULF 2.5 MG/0.5ML(0.5%) NEB SOLN NEB SCH (00:40)
[2024-12-14] MEDS: IPRATROPIUM BROM 0.5 MG/2.5ML INH SOL NEB SCH (00:40)
[2024-12-14] MEDS: ENOXAPARIN SOD 40 MG/0.4 ML SYRINGE SC ONE (00:48)
[2024-12-14] MEDS: amLODIPine BESYLATE 5 MG TAB PO ONE (00:53)
[2024-12-14] MEDS: HYDROcodone-ACET 5/325MG TAB PO PRN (00:55)
[2024-12-14] MEDS: SODIUM CHLORIDE 0.9% 1,000 ML IV SCH (00:56)
[2024-12-14 04:04] LABS: Basophils # (auto) 0 10 ^3/uL (0-0.2); Basophils % (auto) 0.4 % (0.0-2.0); Eosinophils # (auto) 0 10 ^3/uL (0-0.8); Eosinophils % (auto) 0.8 % (0.0-7.0); Hematocrit 39.3 % (41.0-53.0); Lymphocytes # (auto) 0.7 10 ^3/uL (0.4-5.4); Lymphocytes % (auto) 25.3 % (10.0-50.0); Mean Corpuscular Hemoglobin 28.1 pg (28.0-32.0); Mean Corpuscular Volume 85.2 fL (80.0-100.0); Monocytes # (auto) 0.4 10 ^3/uL (0-1.3); Monocytes % (auto) 14.6 % (0.0-12.0); Neutrophils # (auto) 1.7 10 ^3/uL (1.6-8.6); Neutrophils % (auto) 58.9 % (37.0-80.0); Nucleated Red Blood Cells % 0.3 %; Platelet Count (auto) 131 10^3/uL (140-450); Red Blood Cells 4.61 10^6/uL (4.5-5.90); Red Cell Distribution Width 16.2 % (11.8-14.3); White Blood Cell 2.8 10^3/uL (4.4-10.8)
[2024-12-14 04:44] LABS: Alanine Aminotransferase 35 U/L (7-40); Albumin 4.5 g/dL (3.2-4.8); Alkaline Phosphatase 105 U/L (46-116); Anion Gap 10 (5-15); Aspartate Aminotransferase 37 U/L (13-40); BUN/Creatinine Ratio 19.4 (10.0-20.0); Calcium 9.3 mg/dL (8.7-10.4); Carbon Dioxide 22 mmol/L (20-31); Chloride 107 mmol/L (98-107); Glucose 94 mg/dL (74-106); Potassium 4.2 mmol/L (3.5-5.1); Sodium 139 mmol/L (136-145)
[2024-12-14 04:45] LABS: Bilirubin, Total 0.6 mg/dL (0.2-1.0); Total Protein 7.3 g/dL (5.7-8.2)
[2024-12-14 04:46] LABS: Blood Urea Nitrogen 33 mg/dL (9-23)
[2024-12-14] MEDS: ATORVASTATIN 20 MG TAB PO ONE (05:25)
[2024-12-14] MEDS: LEVOTHYROXINE SODIUM 50 MCG TAB PO SCH (06:59)
[2024-12-14] MEDS: cefTRIAXone 1GM/50ML D5W 50 ML IV SCH (08:56)
[2024-12-14] MEDS: ENOXAPARIN SOD 40 MG/0.4 ML SYRINGE SC SCH (08:57)
[2024-12-14] MEDS: amLODIPine BESYLATE 5 MG TAB PO SCH (08:57)
--- NOTE | 2024-12-14 13:37 | DVHPN2 ---
Reviewed: Care Plan, H&P, Labs, Medications, Previous Orders, Radiology Changes from previous H/P or p: No Changes Objective Vitals Vital Signs Date Time Temp Pulse Resp B/P (MAP) Pulse Ox O2 Delivery O2 Flow Rate FiO2 12/14/24 12:00 82 18 100 12/14/24 11:53 Room Air* 0 21 12/14/24 09:03 98.3 132/76 (94) 98.3 Intake/Output Intake and Output 12/14/24 06:59 Intake Total 200 ml Balance 200 ml Intake Oral 200 ml Medications Current Medications Medications Dose Ordered Sig/Noe Route Start Time Stop Time Status Last Admin Dose Admin Nitroglycerin 0.4 mg Q5MINP PRN SL 12/13/24 23:00 Acetaminophen/ Hydrocodone Bitart 1 tab Q4HPRN PRN PO 12/13/24 23:15 12/14/24 00:55 1 TAB Enoxaparin Sodium 40 mg DAILY SC 12/14/24 10:00 12/14/24 08:57 40 MG Levothyroxine Sodium 125 mcg QAM@0600 PO 12/14/24 06:00 12/14/24 06:59 125 MCG Sodium Chloride 1,000 ml @ 100 mls/hr Q10H IV 12/13/24 23:30 12/14/24 00:56 100 MLS/HR Ceftriaxone Sodium 50 ml @ 100 mls/hr DAILY@09 IV 12/14/24 09:00 12/14/24 08:56 100 MLS/HR Ipratropium [place] 0.5 mg Q6HR NEB 12/14/24 00:00 12/14/24 11:53 0.5 MG Tamsulosin HCl 0.4 mg QPM PO 12/14/24 18:00 Albuterol 2.5 mg Q6HR NEB 12/14/24 00:00 12/14/24 11:53 2.5 MG Amlodipine Besylate 5 mg DAILY PO 12/14/24 10:00 12/14/24 08:57 5 MG Atorvastatin Calcium 40 mg HS PO 12/14/24 22:00 Laboratory Results Laboratory Tests 12/14/24 03:35 Chemistry Test 12/13/24 16:14 12/14/24 03:35 Calcium Level 9.8 mg/dL (8.7-10.4) 9.3 mg/dL (8.7-10.4) Albumin 4.5 g/dL (3.2-4.8) Total Protein 7.3 g/dL (5.7-8.2) Lipid panel Test 12/13/24 16:14 Lipase 55 U/L (12-53) H Cardiac Markers Test 12/13/24 16:14 B-Type Natriuretic Peptide 6.19 pg/mL (0-100) LFT Test 12/14/24 03:35 Alanine Aminotransferase (ALT) 35 U/L (7-40) Alkaline Phosphatase 105 U/L (46-116) Aspartate Amino Transferase (AST) 37 U/L (13-40) Total Bilirubin 0.6 mg/dL (0.2-1.0) Urinalysis Test 12/13/24 15:34 Urine Color Yellow (Yellow) Urine Clarity Turbid (Clear) H Urine pH 5.5 (5.0-9.0) Urine Specific [place] 1.024 (1.001-1.035) Urine Protein Trace (Negative) H Urine Ketones Negative (Negative) Urine Blood Trace /uL (Negative) H Urine Nitrite Negative (Negative) Urine Bilirubin Negative (Negative) Urine Urobilinogen 2 mg/dL (Negative) H Urine Leukocyte Esterase 3+ /uL (Negative) Urine RBC 7 /hpf (0 - 3) Urine WBC 125 /hpf (0 - 3) Urine Squamous Epithelial Cells Few /hpf (<5) Urine Bacteria Many /hpf (None Seen) H Urine Mucus Few (None Seen) Urine Creatinine 237.54 mg/dL (30.0-125.0) H Urine Sodium 38 mmol/L (40-220) L Urine Glucose Normal mg/dL (Normal) Microbiology Microbiology Date/Time Source Procedure Growth Status 12/13/24 15:34 Voided Urine Urine Culture - Preliminary Resulted Labs and/or images reviewed: Labs reviewed by me, Image(s) reviewed by me Assessment/Plan Assessment/Plan Sepsis secondary to urinary tract infection Acute urinary tract infection: Blood cultures urine cultures Rocephin History of recurrent urinary tract infections BPH status post TURP Hypertension Hypothyroidism: Synthroid Hypercholesterolemia: Lipitor Sujey test pending Flu test pending Time spent 65 minutes Patient is full code Condition guarded Advanced care planning time 20 minutes Plan discussed with: Patient Date of Service: Dec 14, 2024 Billing Provider: HARSHAD VARELA MD Common Visit Codes: [id number] CARE 30-74 MIN HARSHAD VARELA MD Dec 14, 2024 13:37
[2024-12-14 14:07] LABS: Rapid Influenza B Negative (Negative)
[2024-12-14 14:10] LABS: Rapid Influenza A Positive (Negative)
[2024-12-14 14:11] LABS: COVID19 ANTIGEN SOFIA FIA NEGATIVE (NEGATIVE)
[2024-12-14] MEDS: TAMSULOSIN HYDROCHLORIDE 0.4 MG CAP PO SCH (17:58)
[2024-12-14] MEDS: ATORVASTATIN 20 MG TAB PO SCH (21:00)
[2024-12-15] VITALS (17 sets, daily range): BP systolic 125–147; BP diastolic 72–80; PULSE 74–90; RESP 15–20; TEMP 97.8–98.7; O2SAT 94–100
--- NOTE | 2024-12-15 08:48 | DVHPN2 ---
Reviewed: Care Plan, H&P, Labs, Medications, Previous Orders, Radiology Changes from previous H/P or p: No Changes Objective Vitals Vital Signs Date Time Temp Pulse Resp B/P (MAP) Pulse Ox O2 Delivery O2 Flow Rate FiO2 12/15/24 06:10 79 15 100 12/15/24 06:02 Room Air 12/15/24 06:02 0 21 12/15/24 05:00 97.8 143/80 (101) 97.8 Intake/Output Intake and Output 12/15/24 07:00 Intake Total 1130 ml Output Total 200 ml Balance 930 ml Intake Oral 1080 ml IV Total 50 ml Output Urine Total 200 ml Medications Current Medications Medications Dose Ordered Sig/Noe Route Start Time Stop Time Status Last Admin Dose Admin Nitroglycerin 0.4 mg Q5MINP PRN SL 12/13/24 23:00 Acetaminophen/ Hydrocodone Bitart 1 tab Q4HPRN PRN PO 12/13/24 23:15 12/14/24 00:55 1 TAB Enoxaparin Sodium 40 mg DAILY SC 12/14/24 10:00 12/14/24 08:57 40 MG Levothyroxine Sodium 125 mcg QAM@0600 PO 12/14/24 06:00 12/15/24 05:29 125 MCG Sodium Chloride 1,000 ml @ 100 mls/hr Q10H IV 12/13/24 23:30 12/14/24 13:40 100 MLS/HR Ceftriaxone Sodium 50 ml @ 100 mls/hr DAILY@09 IV 12/14/24 09:00 12/14/24 08:56 100 MLS/HR Ipratropium [place] 0.5 mg Q6HR NEB 12/14/24 00:00 12/15/24 06:02 0.5 MG Tamsulosin HCl 0.4 mg QPM PO 12/14/24 18:00 12/14/24 17:58 0.4 MG Albuterol 2.5 mg Q6HR NEB 12/14/24 00:00 12/15/24 06:02 2.5 MG Amlodipine Besylate 5 mg DAILY PO 12/14/24 10:00 12/14/24 08:57 5 MG Atorvastatin Calcium 40 mg HS PO 12/14/24 22:00 12/14/24 21:00 40 MG Laboratory Results Laboratory Tests 12/14/24 03:35 Urinalysis Test 12/13/24 15:34 Urine Color Yellow (Yellow) Urine Clarity Turbid (Clear) H Urine pH 5.5 (5.0-9.0) Urine Specific [place] 1.024 (1.001-1.035) Urine Protein Trace (Negative) H Urine Ketones Negative (Negative) Urine Blood Trace /uL (Negative) H Urine Nitrite Negative (Negative) Urine Bilirubin Negative (Negative) Urine Urobilinogen 2 mg/dL (Negative) H Urine Leukocyte Esterase 3+ /uL (Negative) Urine RBC 7 /hpf (0 - 3) Urine WBC 125 /hpf (0 - 3) Urine Squamous Epithelial Cells Few /hpf (<5) Urine Bacteria Many /hpf (None Seen) H Urine Mucus Few (None Seen) Urine Creatinine 237.54 mg/dL (30.0-125.0) H Urine Sodium 38 mmol/L (40-220) L Urine Glucose Normal mg/dL (Normal) Microbiology Microbiology Date/Time Source Procedure Growth Status 12/13/24 23:57 Blood Blood Culture - Preliminary NO GROWTH AFTER 24 HOURS OF INCUBATION. Resulted 12/13/24 15:34 Voided Urine Urine Culture - Preliminary Resulted Labs and/or images reviewed: Labs reviewed by me, Image(s) reviewed by me Assessment/Plan Assessment/Plan Sepsis secondary to urinary tract infection Acute urinary tract infection: Blood cultures negative, urine cultures pending, continue Rocephin History of recurrent urinary tract infections Flu type A positive: Tamiflu 30 mg p.o. b.i.d. for five days BPH status post TURP Hypertension Hypothyroidism: Synthroid Hypercholesterolemia: Lipitor Sujey test negative PCP Dr. Lloyded Patient on disability and on chronic pain management Time spent 55 minutes Patient is full code Condition guarded Advanced care planning time 20 minutes Plan discussed with: Patient Date of Service: Dec 15, 2024 Billing Provider: HARSHAD VARELA MD Common Visit Codes: [id number] INP/OBS CARE(HIGH) HARSHAD VARELA MD Dec 15, 2024 08:48
[2024-12-15] MEDS: OSELTAMIVIR 75 MG CAP PO ONE (10:01)
--- NOTE | 2024-12-15 14:51 | ECG ---
[facility] Test Date: 2024-12-15 Test Time: 04:29:28 Pat Name: RANDELL ENRIQUE Department: Respiratoy Room: 0204 A Gender: M Carpet Tile Layer: MONIE : 1965 Requested By: HARSHAD VARELA Order Number: [id number] Reading MD: Paul Renteria Measurements Intervals [place] Rate: 83 P: 70 [place]: 149 QRS: 85 QRSD: 94 T: 29 QT: 374 QTc: 440 Interpretive Statements Sinus rhythm Probable Inferior infarct, old Electronically Signed On 12-16-2024 10:33:59 PST by Paul Renteria Please click the below link to view image of tracing.
--- NOTE | 2024-12-15 14:51 | ECG ---
[facility] Test Date: 2024-12-15 Test Time: 04:28:37 Pat Name: RANDELL ENRIQUE Department: Respirat[facility] Room: 0204 A Gender: M Director Visual: MONIE : 1965 Requested By: HARSHAD VARELA Order Number: [id number] Reading MD: Paul Renteria Measurements Intervals [place] Rate: 81 P: 67 [place]: 145 QRS: 82 QRSD: 93 T: 27 QT: 377 QTc: 438 Interpretive Statements Sinus rhythm Probable Inferior infarct, old Electronically Signed On 12-16-2024 10:33:46 PST by Paul Renteria Please click the below link to view image of tracing.
[2024-12-15] MEDS: OSELTAMIVIR 30 MG CAP PO SCH (21:09)
[2024-12-15] MEDS: ALPRAZolam 0.5 MG TAB PO PRN (21:16)
[2024-12-16] VITALS (9 sets, daily range): BP systolic 121–147; BP diastolic 57–86; PULSE 70–82; RESP 14–20; TEMP 97.7–98.2; O2SAT 74–100
--- NOTE | 2024-12-16 08:45 | DVHPN2 ---
Reviewed: Care Plan, H&P, Labs, Medications, Previous Orders, Radiology Changes from previous H/P or p: No Changes Objective Vitals Vital Signs Date Time Temp Pulse Resp B/P (MAP) Pulse Ox O2 Delivery O2 Flow Rate FiO2 12/16/24 07:10 70 16 100 12/16/24 07:03 Room Air* 0 21 12/16/24 04:53 97.9 128/70 (89) 97.9 Intake/Output Intake and Output 12/16/24 07:00 Intake Total 4230 ml Output Total 2 ml Balance 4228 ml Intake Oral 3080 ml IV Total 1150 ml Output Urine Total 2 ml # Voids 3 # Bowel Movements 1 Medications Current Medications Medications Dose Ordered Sig/Noe Route Start Time Stop Time Status Last Admin Dose Admin Nitroglycerin 0.4 mg Q5MINP PRN SL 12/13/24 23:00 Acetaminophen/ Hydrocodone Bitart 1 tab Q4HPRN PRN PO 12/13/24 23:15 12/14/24 00:55 1 TAB Enoxaparin Sodium 40 mg DAILY SC 12/14/24 10:00 12/15/24 10:03 40 MG Levothyroxine Sodium 125 mcg QAM@0600 PO 12/14/24 06:00 12/16/24 05:25 125 MCG Sodium Chloride 1,000 ml @ 100 mls/hr Q10H IV 12/13/24 23:30 12/15/24 15:42 100 MLS/HR Ceftriaxone Sodium 50 ml @ 100 mls/hr DAILY@09 IV 12/14/24 09:00 12/15/24 10:03 100 MLS/HR Ipratropium [place] 0.5 mg Q6HR NEB 12/14/24 00:00 12/16/24 07:03 0.5 MG Tamsulosin HCl 0.4 mg QPM PO 12/14/24 18:00 12/15/24 17:43 0.4 MG Albuterol 2.5 mg Q6HR NEB 12/14/24 00:00 12/16/24 07:03 2.5 MG Amlodipine Besylate 5 mg DAILY PO 12/14/24 10:00 12/15/24 10:02 5 MG Atorvastatin Calcium 40 mg HS PO 12/14/24 22:00 12/15/24 21:09 40 MG Oseltamivir Phosphate 30 mg BID PO 12/15/24 22:00 12/20/24 21:59 12/15/24 21:09 30 MG Alprazolam 1 mg TIDP PRN PO 12/15/24 10:00 12/15/24 21:16 1 MG Laboratory Results Laboratory Tests 12/14/24 03:35 Urinalysis Test 12/13/24 15:34 Urine Color Yellow (Yellow) Urine Clarity Turbid (Clear) H Urine pH 5.5 (5.0-9.0) Urine Specific [place] 1.024 (1.001-1.035) Urine Protein Trace (Negative) H Urine Ketones Negative (Negative) Urine Blood Trace /uL (Negative) H Urine Nitrite Negative (Negative) Urine Bilirubin Negative (Negative) Urine Urobilinogen 2 mg/dL (Negative) H Urine Leukocyte Esterase 3+ /uL (Negative) Urine RBC 7 /hpf (0 - 3) Urine WBC 125 /hpf (0 - 3) Urine Squamous Epithelial Cells Few /hpf (<5) Urine Bacteria Many /hpf (None Seen) H Urine Mucus Few (None Seen) Urine Creatinine 237.54 mg/dL (30.0-125.0) H Urine Sodium 38 mmol/L (40-220) L Urine Glucose Normal mg/dL (Normal) Microbiology Microbiology Date/Time Source Procedure Growth Status 12/14/24 16:00 Nose MRSA Screen - Final Complete 12/13/24 23:57 Blood Blood Culture - Preliminary NO GROWTH AFTER 48 HOURS OF INCUBATION. Resulted 12/13/24 15:34 Voided Urine Urine Culture - Final Escherichia coli Complete Labs and/or images reviewed: Labs reviewed by me, Image(s) reviewed by me Assessment/Plan Assessment/Plan Sepsis secondary to urinary tract infection Acute urinary tract infection: Blood cultures negative, urine cultures growing E coli, continue Rocephin History of recurrent urinary tract infections Flu type A positive: Tamiflu 30 mg p.o. b.i.d. for five days BPH status post TURP Hypertension Hypothyroidism: Synthroid Hypercholesterolemia: Lipitor Sujey test negative PCP Dr. Lloyded Patient on disability and on chronic pain management Time spent 55 minutes Patient On room air afebrile stable vital signs we will discharged home Plan discussed with: Patient My Orders Orders - HARSHAD VARELA MD Procedure Category Date Status Time Oseltamivir 30mg PHA 12/15/24 In Process Capsule (Tamiflu 30mg 22:00 Alprazolam Tablet PHA 12/15/24 In Process (Xanax Tablet) 10:00 Date of Service: Dec 16, 2024 Billing Provider: HARSHAD VARELA MD Common Visit Codes: [id number] INP/OBS CARE(HIGH) HARSHAD VARELA MD Dec 16, 2024 08:45
[2024-12-16] MEDS ORDERED: TAMIF30 PO (08:46)
[2024-12-16] MEDS ORDERED: CIPR-173 PO (08:46)
--- NOTE | 2024-12-16 08:49 | DVHDS2 ---
Discharge Summary Date of Admission Dec 13, 2024 at 22:56 Date of Discharge: Dec 16, 2024 Admitting Diagnosis Shortness of breath Wounds: None Labs/Diagnostic Data: Laboratory Results Test 12/14/24 12:20 12/14/24 03:35 12/13/24 17:49 12/13/24 16:14 Influenza Type A Antigen Positive (Negative) Influenza Type B Antigen Negative (Negative) SARS-CoV-2 Antigen (Rapid) Negative (NEGATIVE) White Blood Count 2.8 10^3/uL (4.4-10.8) Red Blood Count 4.61 10^6/uL (4.5-5.90) Hemoglobin 13.0 g/dL (13.5-17.5) Hematocrit 39.3 % (41.0-53.0) Mean Corpuscular Volume 85.2 fL (80.0-100.0) Mean Corpuscular Hemoglobin 28.1 pg (28.0-32.0) Mean Corpuscular Hemoglobin Concent 33.0 g/dL (32.0-36.0) Red Cell Distribution Width 16.2 % (11.8-14.3) Platelet Count 131 10^3/uL (140-450) Mean Platelet Volume 7.9 fL (6.9-10.8) Neutrophils (%) (Auto) 58.9 % (37.0-80.0) Lymphocytes (%) (Auto) 25.3 % (10.0-50.0) Monocytes (%) (Auto) 14.6 % (0.0-12.0) Eosinophils (%) (Auto) 0.8 % (0.0-7.0) Basophils (%) (Auto) 0.4 % (0.0-2.0) Neutrophils # (Auto) 1.7 10 ^3/uL (1.6-8.6) Lymphocytes # (Auto) 0.7 10 ^3/uL (0.4-5.4) Monocytes # (Auto) 0.4 10 ^3/uL (0-1.3) Eosinophils # (Auto) 0 10 ^3/uL (0-0.8) Basophils # (Auto) 0 10 ^3/uL (0-0.2) Nucleated Red Blood Cells 0.3 % Sodium Level 139 mmol/L (136-145) Potassium Level 4.2 mmol/L (3.5-5.1) Chloride Level 107 mmol/L (98-107) Carbon Dioxide Level 22 mmol/L (20-31) Anion Gap 10 (5-15) Blood Urea Nitrogen 33 mg/dL (9-23) Creatinine 1.70 mg/dL (0.700-1.30) Glomerular Filtration Rate Calc 46 mL/min (>90) BUN/Creatinine Ratio 19.4 (10.0-20.0) Serum Glucose 94 mg/dL (74-106) Lactic Acid Level 1.2 mmol/L (0.4-2.0) Calcium Level 9.3 mg/dL (8.7-10.4) Total Bilirubin 0.6 mg/dL (0.2-1.0) Aspartate Amino Transferase (AST) 37 U/L (13-40) Alanine Aminotransferase (ALT) 35 U/L (7-40) Alkaline Phosphatase 105 U/L (46-116) Total Protein 7.3 g/dL (5.7-8.2) Albumin 4.5 g/dL (3.2-4.8) Troponin I High Sensitivity 6 ng/L (</=54) B-Type Natriuretic Peptide 6.19 pg/mL (0-100) Lipase 55 U/L (12-53) Test 12/13/24 15:34 Urine Color Yellow (Yellow) Urine Clarity Turbid (Clear) Urine pH 5.5 (5.0-9.0) Urine Specific [place] 1.024 (1.001-1.035) Urine Protein Trace (Negative) Urine Ketones Negative (Negative) Urine Blood Trace /uL (Negative) Urine Nitrite Negative (Negative) Urine Bilirubin Negative (Negative) Urine Urobilinogen 2 mg/dL (Negative) Urine Leukocyte Esterase 3+ /uL (Negative) Urine RBC 7 /hpf (0 - 3) Urine WBC 125 /hpf (0 - 3) Urine Squamous Epithelial Cells Few /hpf (<5) Urine Bacteria Many /hpf (None Seen) Urine Mucus Few (None Seen) Urine Creatinine 237.54 mg/dL (30.0-125.0) Urine Sodium 38 mmol/L (40-220) Urine Glucose Normal mg/dL (Normal) Urine Opiates Screen Neg (NEGATIVE) Urine Fentanyl Screen Neg (NEGATIVE) Urine Barbiturates Screen Neg (NEGATIVE) Urine Phencyclidine Screen Neg (NEGATIVE) Urine Amphetamines Screen Neg (NEGATIVE) Urine Benzodiazepines Screen Neg (NEGATIVE) Urine Cocaine Screen Neg (NEGATIVE) Urine Cannabinoids Screen Neg (NEGATIVE) Other Laboratory Tests 12/14/24 03:35 Brief Hx & Hospital Course: 59-year-old male with a history of BPH status post TURP recurrent urinary tract infections hypertension hypothyroidism hypercholesterolemia came in for shortness of breaths and generalized weakness found to have sepsis secondary to urinary tract infection treated with Rocephin blood cultures negative urine cultures growing E coli sensitive to Rocephin and Cipro tested positive for type A flu treated with the Tamiflu at the time of discharge patient is afebrile with stable vital signs discharged home on Cipro for UTI and Tamiflu for type A flu Consults/Reason for consult None Operations or Procedures None Condition at Discharge: Fair Final Diagnosis/Problems List Sepsis secondary to urinary tract infection Acute urinary tract infection: Blood cultures negative, urine cultures growing E coli, continue Rocephin History of recurrent urinary tract infections Flu type A positive: Tamiflu 30 mg p.o. b.i.d. for five days BPH status post TURP Hypertension Hypothyroidism: Synthroid Hypercholesterolemia: Lipitor Sujey test negative PCP Dr. Benoit Discharge Disposition: Home Discharge Instruct/Medications Diet: Cardiac 2g Na,low cholest Activity: Light activity Follow Up/Referral: Follow up with your primary Dr Dr. Benoit Medications: Cipro Tamiflu Transmitted to [facility] pharmacy 35 (Time taken for discharge summary 35 minutes) Discharge Statement: "Patient was advised to return to the ER or call 911 if any headaches, dizziness, shortness of breath, chest pain, abdominal pain, bleeding, fevers, or worsening of medical condition. Patient was counseled about treatment plan, medications, possible side effects, patientverbalized understanding. All questions were answered to the best of my ability. This discharge took greater then 30 minutes in planning, reviewing documentation, counseling the patient, and discussing with other team members." ASSESSMENT ASSESSMENT Hospital Course Improved Assessment Sepsis secondary to urinary tract infection Acute urinary tract infection: Blood cultures negative, urine cultures growing E coli, continue Rocephin History of recurrent urinary tract infections Flu type A positive: Tamiflu 30 mg p.o. b.i.d. for five days BPH status post TURP Hypertension Hypothyroidism: Synthroid Hypercholesterolemia: Lipitor Sujey test negative PCP Dr. Benoit Date of Service: Dec 16, 2024 Billing Provider: HARSHAD VARELA MD Common Visit Codes: 85528-IDC/OBS DISCH DAY >30min HARSHAD VARELA MD Dec 16, 2024 08:49
== END 2024-12-16 14:05 | disposition home or self-care (01) | DRG 871 ==
LOC: ER 14:23 → OVERFLOW 22:56 → CENTRAL 12-14 15:45
PROVIDERS: ADMIT Family Medicine; ATTEND Family Medicine
DX: A41.51 Sepsis due to Escherichia coli [E. coli] (principal); J10.00 Influenza due to other identified influenza virus with unspecified type of pneumonia; N17.0 Acute kidney failure with tubular necrosis; N39.0 Urinary tract infection, site not specified; Z20.822 Contact with and (suspected) exposure to COVID-19; E03.9 Hypothyroidism, unspecified; E78.00 Pure hypercholesterolemia, unspecified; K74.60 Unspecified cirrhosis of liver; M21.961 Unspecified acquired deformity of right lower leg; N40.1 Benign prostatic hyperplasia with lower urinary tract symptoms; I12.9 Hypertensive chronic kidney disease with stage 1 through stage 4 chronic kidney disease, or unspecified chronic kidney disease; N18.2 Chronic kidney disease, stage 2 (mild); Z88.1 Allergy status to other antibiotic agents; Z88.3 Allergy status to other anti-infective agents; Z88.5 Allergy status to narcotic agent; Z90.79 Acquired absence of other genital organ(s)
CPT/HCPCS: 36415; 71045; 74176; 80048; 80053; 80307; 81001; 82570; 83605; 83690; 83880; 84300; 84484; 85025; 87040; 87081; 87086; 87088; 87186; 87426; 87804; 93005; 94640; G0378; G9035